=== PATIENT | male | born 1970 | race Caucasian/White ===

== ENCOUNTER 2020-02-14 10:41 | Outpatient (NON) | payer OTHER, SELFPAY ==
[2020-02-15 14:53] LABS: SARS-CoV-2 RNA PCR Positive
== END 2020-02-14 10:42 ==
LOC: ANHCOVIDDT 10:42
PROVIDERS: PCP Family Medicine; Visit Provider Nurse Practitioner Family
DX: U07.1 COVID-19 (principal)
CPT/HCPCS: 87635; C9803; U0003

== ENCOUNTER 2020-07-07 08:21 | Emergency (ER) | payer OTHER, SELFPAY ==
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
[2020-07-07 08:36] VITALS: BP 148/76; PULSE 66; RESP 16; TEMP 36.3; O2SAT 99
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
== END 2020-07-07 09:34 | disposition home or self-care (01) ==
PROVIDERS: Emergency Provider Nurse Practitioner; PCP Family Medicine
DX: S22.32XA Fracture of one rib, left side, initial encounter for closed fracture (principal); V86.06XA Driver of dirt bike or motor/cross bike injured in traffic accident, initial encounter
CPT/HCPCS: 71046; 71110; 99213; G0463

== ENCOUNTER → 2021-03-07 00:55 | Outpatient (CLI) | payer OTHER, SELFPAY ==
[2021-03-07 18:54] LABS: SARS-CoV-2 RNA PCR Negative
== END ==
PROVIDERS: PCP Family Medicine; Visit Provider Internal Medicine Gastroenterology
DX: Z01.812 Encounter for preprocedural laboratory examination (principal); Z20.822 Contact with and (suspected) exposure to COVID-19
CPT/HCPCS: C9803; U0003; U0005

== ENCOUNTER 2021-03-10 00:32 | Day surgery (SDC) | payer OTHER, SELFPAY ==
[2021-02-19 15:06] VITALS: BMI 30.9
--- NOTE | 2021-03-10 08:12 | P.PNAN_ITS ---
Anes - Initial Pre Proc Eval Procedure: Operation Date: 03/10/21 10:45 Proposed Procedures p Screening Colonoscopy - Prabhu Moreno MD Date/Time: 03/10/21 08:12 Surgeon: Prabhu Moreno MD Pre Op Diagnosis: neoplasm screening Patient Data Age: 50 Gender: M Height: 1.78 m Weight: 98 kg Allergies Allergy/AdvReac Type Severity Reaction Status Date / Time No Known Allergies Allergy Verified 03/10/21 09:43 Home Medications Medication Instructions Recorded Confirmed Type No Home Medications 02/19/21 02/19/21 History Patient hx anesthesia problems: none Family hx anesthesia problems: none Results Review: All pre-operative results and documents have been reviewed as part of the pre-operative evaluation. PMFSH Past Medical History Medical History Low testosterone Social History Social History Smoking status: Never smoker Second hand tobacco smoke exposure: No Alcohol intake: never Substance use: never Substance use type: does not use Living arrangements: with family Gender identity (if verbalized by the patient): Male Sexual Orientation (if Verbalized by the Patient): Straight or Heterosexual Spiritual care concerns: No Anes - Eval Final PreProcedure Day of Procedure 03/10/21 08:12 Patient weight: obese Heart: regular rate and rhythm Lungs: clear to auscultation and normal air movement Airway: Mallampati scale class II Neurological: alert and oriented Last oral intake: >/= 8 hours ASA classification: II Emergent: no Anesthetic plan: proceed Anesthesia type and monitoring: general GIVS and standard monitoring Results Review: All pre-operative results and documents have been reviewed as pa rt of the pre-operative evaluation. Informed Consent: The patient's anesthetic plan and its attendant risks and benefits were discussed with the patient/family/POA. Questions were solicited and answers provided to the satisfaction of the patient/family/POA.
[2021-03-10 09:44] VITALS: BP 127/92; PULSE 56; RESP 16; TEMP 36; O2SAT 96; BMI 30.4
[2021-03-10] MEDS: LACTATED RINGERS 1,000 ML 150 ML IV CONT (09:59)
--- NOTE | 2021-03-10 10:38 | PM.HPGS ---
History of Present Illness History of Present Illness Consent: Risks, benefits, and alternatives have been discussed and questions answered. Patient agrees to proceed with procedure. Chief complaint: neoplasm screening Narrative: aRn Wing is a 50 year old male here for first screening colonoscopy Review of Systems Constitutional: Constitutional: Denies headache(s) and Denies weakness Eyes: Eyes: Denies blurry vision ENT: Reports Normal hearing present, Denies headache(s) and Denies neck pain Cardiovascular: Cardiovascular: Denies chest pain and Denies dyspnea Respiratory: Respiratory: Denies dyspnea Gastrointestinal: Gastrointestinal: Reports no additional gastrointestinal complaints Genitourinary: Genitourinary: Denies dysuria Musculoskeletal: Musculoskeletal: Denies neck pain Integumentary/Breasts: Skin/Breast: Denies dry skin Neurologic: Reports Normal hearing present, Denies headache(s) and Denies weakness Psychiatric: Psychiatric: Denies anxiety Endocrine: Endocrine: Denies change in body appearance Hematologic/Lymphatic: Hematologic/Lymphatic: Denies easy bleeding Allergic/Immunologic: Allergic/Immunologic: Denies urticaria PMF Past Medical History Medical History (Updated 03/10/21 @ 10:38 by Prabhu Moreno MD) Colon cancer screening Low testosterone Social History Social History Smoking status: Never smoker Second hand tobacco smoke exposure: No Alcohol intake: never Substance use: never Substance use type: does not use Living arrangements: with family Gender identity (if verbalized by the patient): Male Sexual Orientation (if Verbalized by the Patient): Straight or Heterosexual Spiritual care concerns: No Meds Home Medications and Allergies Home Medications Medication Instructions Recorded Confirmed Type No Home Medications 02/19/21 02/19/21 History Allergies Allergy/AdvReac Type Severity Reaction Status Date / Time No Known Allergies Allergy Verified 03/10/21 09:43 Vital Signs Vital Signs - 24 hr 03/10/21 09:44 Temperature 96.8 F L Pulse Rate 56 L Respiratory Rate 16 Blood Pressure 127/92 H Pulse Oximetry 96 Exam Const: General: comfortable and no acute distress HENMT: General nose exam: Normal nares present Eyes: General: appearance normal, both eyes and all related structures Neck: Neck: no JVD Resp: Auscultation: clear to auscultation bilaterally Cardio: Rate: regular rate Rhythm: regular rhythm GI: Inspection: non-distended GI Palp: Yes Soft to palpation Skin: General skin exam: normal color Neuro: General: gait normal Speech: normal speech Extrem: General: normal to inspection Psych: Mental Status: mental status grossly normal Assessment and Plan Assessment and plan (1) Colon cancer screening: Code(s): Z12.11 - Encounter for screening for malignant neoplasm of colon Status: Acute Assessment and Plan: colonoscopy
[2021-03-10 10:53] VITALS: BP 101/58; PULSE 53; RESP 18; O2SAT 95
[2021-03-10 11:03] VITALS: BP 87/66; PULSE 53; RESP 21; O2SAT 99
[2021-03-10 11:13] VITALS: BP 118/83; PULSE 50; RESP 19; O2SAT 97
== END 2021-03-10 11:25 | disposition home or self-care (01) ==
PROVIDERS: PCP Family Medicine; Visit Provider Internal Medicine Gastroenterology
PROC: 0DJD8ZZ Inspection of Lower Intestinal Tract, Via Natural or Artificial Opening Endoscopic (ICD-10-PCS; CPT 45378; principal; 2021-03-10 10:45)
DX: Z12.11 Encounter for screening for malignant neoplasm of colon (principal); K63.5 Polyp of colon; K57.30 Diverticulosis of large intestine without perforation or abscess without bleeding; K64.8 Other hemorrhoids; E66.9 Obesity, unspecified; Z68.30 Body mass index [BMI] 30.0-30.9, adult
CPT/HCPCS: 45385; 88305; C9803; J2704; J7120; U0003; U0005

== ENCOUNTER 2021-04-30 16:57 | Outpatient (CLI) | payer OTHER, SELFPAY ==
--- NOTE | ~2021-04-30 | XR_ITS ---
XR abdomen/kub 1V DATE: 04/30/2021 17:16 INDICATION: Low back pain TECHNIQUE: AP projection, 2 views COMPARISON: None FINDINGS: The psoas shadows are intact. No visceromegaly is evident. There is no evidence of bowel ob struction. Minimal levoscoliosis and mild degenerative change of the lumbar spine. IMPRESSION: Nonspecific abdomen Reviewed, dictated and finalized at Location A. Reviewed, dictated and finalized at location A. NS PLANTER IMPRESSION: Nonspecific abdomen
--- NOTE | ~2021-04-30 | XR_ITS ---
XR lumbar spine min 4V DATE: 04/30/2021 17:16 INDICATION: Low back pain TECHNIQUE: AP, lateral, coned lateral lumbosacral and bilateral oblique views COMPARISON: 10/23/2015 lumbar spine FINDINGS: There is diffuse osteopenia. There is minimal levoscoliosis of the lumbar spine. There is mild degenerative disc disease at L2-3 and L3-4 and to a greater extent L5-S1. No spondyloly sis or spondylolisthesis. The lumbar pedicles are intact. The sacroiliac joints appear normal. IMPRESSION: Multilevel mild to moderate degenerative disc disease Reviewed, dictated and finalized at location A. LY CHAIN VICE PRESIDENT
== END 2021-04-30 16:58 | disposition home or self-care (01) ==
LOC: ANHIMG 16:59
PROVIDERS: PCP Family Medicine; Visit Provider Physician Assistant
DX: M54.50 Low back pain, unspecified (principal); Z87.442 Personal history of urinary calculi; M51.36 Other intervertebral disc degeneration, lumbar region
CPT/HCPCS: 72110; 74018

== ENCOUNTER 2021-05-11 13:23 | Outpatient (CLI) | payer OTHER, SELFPAY ==
--- NOTE | ~2021-05-11 | CT_ITS ---
EXAMINATION: CT abdomen pelvis wo con DATE: 05/11/2021 13:42 INDICATION: Calculus of kidney. TECHNIQUE: Computed tomography (CT) of the abdomen and pelvis was performed without intravenous contr ast. Automated exposure control and iterative reconstruction technique were employed. The dose-length product was 346.25 mGy-cm. COMPARISON: CT abdomen and pelvis 01/02/2006 FINDINGS: The visualized portions of the lung bases are clear without pneumonia or pleural effusion. The heart size is normal. No pericardial effusion. The liver, gallbladder, spleen, pancreas, adrenal glands, and kidneys are normal. There is no urolithiasis. There are bilateral inguinal hernias contai skyler fat. There are no dilated loops of bowel. The appendix is normal. There are no pathologically en larged lymph nodes. There is no free intraperitoneal fluid. There is mild thoracolumbar spondylosis. IMPRESSION: 1. No urolithiasis. Reviewed, dictated and finalized at location E. REPAIR PERSON IMPRESSION: 1. No urolithiasis.
== END 2021-05-11 13:24 | disposition home or self-care (01) ==
PROVIDERS: PCP Family Medicine; Visit Provider Physician Assistant
DX: N20.0 Calculus of kidney (principal); R10.9 Unspecified abdominal pain; M85.80 Other specified disorders of bone density and structure, unspecified site
CPT/HCPCS: 74176

== ENCOUNTER → 2021-06-27 00:06 | Outpatient (CLI) | payer OTHER, SELFPAY ==
[2021-06-27 13:37] LABS: SARS-CoV-2 RNA PCR Negative
== END ==
PROVIDERS: PCP Family Medicine; Visit Provider Surgery
DX: Z01.812 Encounter for preprocedural laboratory examination (principal); Z20.822 Contact with and (suspected) exposure to COVID-19
CPT/HCPCS: C9803; U0003; U0005

== ENCOUNTER 2021-07-01 00:51 | Day surgery (SDC) | payer OTHER, SELFPAY ==
[2021-06-22 14:59] VITALS: BMI 30.9
--- NOTE | 2021-06-22 15:04 | SUR.PREOP ---
Report to the Outpatient Waiting Room, entrance under the green pavilion located off [facility], at time 0900 on date 07/01/21 . OR Time: __1100 . - You and your visitor will be asked a series of questions to screen for COVID 19 for your protection. - A mask is required within the hospital. Preoperative COVID Testing Requirements: No COVID Test needed if: (proof is required; if not received patient will have Rapid Test prior to entry) - Patient has received COVID Vaccine at least 14 days prior to procedure date or - Patient has positive COVID test result within last 90 days of surgery date. COVID Test needed if above criteria is not met If not COVID vaccinated a COVID test must be conducted within 72 hours of surgery and patient is asked to isolate self from time of testing until procedure. You will go to the [facility] for your COVID testing. The [facility] is located at the corner of [address] from [facility]. You will only be called if COVID results are positive and your surgeon may reschedule your elective surgery date. Patients may have clear liquids (water, carbonated beverages, clear teas, apple juice) until 3 hours prior to surgery with a maximum of 20 ounces. - No food from midnight until time of surgery - Infants may have breast milk until 4 hours before surgery, infant formula 6 hours prior to surgery. - Children will be allowed to drink immediately following surgery. If applicable, please bring a bottle or sippy cup to assist with drinking. Juice, water, soda, and popsicles are readily available. For infants on formula, please bring formula the day of surgery. Pacifiers are allowed. Take the following medications with a SIP of water the morning of surgery: __n/a Medications to discontinue per physician ___n/a Date to take last dose___n/a Please no make-up, nail yakut, hairspray, perfume, deodorant, or body powder the day of surgery. No jewelry (including any body piercings) or valuables the day of surgery, leave them at home. Please take a shower or bath the night before, or the morning of, surgery with an antibacterial soap. Wear comfortable, loose fitting clothing. Children are encouraged to wear pajamas. hibiclens shower am of surgery. - Jewelry must be removed prior to entering the operating room. Rings and piercings that are not removed may be cut off. - The hospital will not accept responsibility for valuables. - Please leave all valuables, including medications, at home the day of surgery. If you are going home after surgery, a licensed pile driver operator must drive you home. - NO public transportation without another adult. - We recommend that an adult stay with you for 24 hours following discharge. - We also recommend that you do not drive, make important decision, drink alcoholic beverages, or take any drugs that were not prescribed by your health care provider for at least 24 hours after your discharge time. For Pediatric surgeries, we recommend two adults accompany the child home (only one inside the building at this time). One visitor will be allowed to accompany the patient into the hospital. Patients visitor will be instructed to remain with patient at all times or leave the building. We will allow the visitor to come back to the postoperative area when patient is ready. Follow any additional instructions given to you from your surgeon. Telephone instructions given to _dasia lopez and asked if any additional questions and then verbalized understanding. Patient advised to call surgeon office or pre surgery nurse liaison [phone] if any additional questions.
--- NOTE | 2021-06-30 14:59 | PM.SD2 ---
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 A few days later he started noticing pain in his low back and left groin. He got a CT scan of the abdomen and pelvis which showed bilateral fat containing inguinal hernias. Both the back pain and the left groin pain resolved. I saw him in the office. On examination he had a reducible, small right inguinal hernia but no left inguinal hernia. After discussion, he is taken to surgery at this time for right inguinal hernia repair. [facility] Past Medical History Medical History Colon cancer screening Low testosterone Renal stones Surgical History Surgical History H/O shoulder surgery H/O umbilical hernia repair Family History Family History Sibling Hypertension Father Diabetes mellitus Other Family history of malignant neoplasm Social History Social History Smoking status: Never smoker Second hand tobacco smoke exposure: No Alcohol intake: never Substance use: never Substance use type: does not use Living arrangements: with family Additional occupation/education comments: [employer] Gender identity (if verbalized by the patient): Male Sexual Orientation (if Verbalized by the Patient): Straight or Heterosexual Spiritual care concerns: No Same Day Admit/Disch: Med Pre-admit Medications Home Medications Medication Instructions Recorded Confirmed Type cholecalciferol (vitamin D3) 25 mcg PO DAILY 06/22/21 07/01/21 History [Vitamin D3] hydrocodone-acetaminophen 1 - 2 tablet PO Q6H PRN #7 tablet 07/01/21 Rx ketorolac 10 mg PO Q6H 4 Days #16 tablet 07/01/21 Rx Exam Const: General: comfortable, no acute distress, alert and awake HENMT: Head: normocephalic and atraumatic Mouth: Yes Normal oral and palatal mucosa present Eyes: Conjunctivae: conjunctivae normal Pupils: Equal, round and reactive pupils present EOM: EOMs intact bilaterally Neck: Neck: normal visual inspection, no lymphadenopathy and nontender Resp: Effort & Inspection: normal respiratory effort Auscultation: clear to auscultation bilaterally Cardio: Rate: regular rate Rhythm: regular rhythm Heart sounds: no gallops, no murmurs and no rubs GI: Inspection: non-distended GI Palp: Yes Soft to palpation, No Tenderness to palpation present (GI), No Hepatomegaly present and No Splenomegaly present : Male General Exam: Yes hernia (Left inguinal hernia, reducible) Penis: Yes normal penis Scrotum: scrotum normal Testes: Testes normal Skin: Lesions: no lesions Rashes: no rashes Neuro: General: no focal motor deficits and CN's II-XI intact bilaterally Cranial nerves: Yes Equal, round and reactive pupils present, Yes Bilaterally intact EOM present, Yes facial symmetry and Yes Midline tongue present Speech: normal speech Motor exam (neuro): 5/5 motor strength present throughout and Motor abnormalities not present Extrem: General: no clubbing, cyanosis or edema and edema Psych: Affect: normal affect Thought process: Normal thought process present Insight: Good insight present (Psych) DS: Summary Time Spent with Patient Time attestation: Total time spent providing and/or coordinating discharge services: DS: Admitting Diagnosis Discharge Date 07/01/2021 Admitting Diagnosis Left inguinal hernia-plan to proceed with left inguinal hernia repair under anesthesia as an outpatient. The procedure the risks the benefits have been discussed. Use of mesh has been discussed. The usual recovery time was discussed. All questions were answered. He understands and agrees to go ahead. DS: Discharge Diagnosis Discharg
[2021-07-01 06:12] VITALS: BP 136/83; PULSE 56; RESP 16; TEMP 36.1; O2SAT 97
[2021-07-01] MEDS: ACETAMINOPHEN 500 MG TABLET 1000 MG PO (06:37)
--- NOTE | 2021-07-01 06:43 | P.PNAN_ITS ---
Anes - Initial Pre Proc Eval Procedure: Operation Date: 07/01/21 07:30 Proposed Procedures p Right Inguinal Hernia Repair - Thiago Rolon MD Date/Time: 07/01/21 06:43 Surgeon: Thiago Rolon MD Pre Op Diagnosis: Rt Ing Hernia Patient Data Age: 50 Gender: M Height: 1.78 m Weight: 100.6 kg Last Vital Signs Temp 36.1 C L 07/01/21 06:12 Pulse 56 L 07/01/21 06:12 Resp 16 07/01/21 06:12 BP 136/83 07/01/21 06:12 Pulse Ox 97 07/01/21 06:12 Allergies Allergy/AdvReac Type Severity Reaction Status Date / Time No Known Allergies Allergy Verified 07/01/21 06:34 Home Medications Medication Instructions Recorded Confirmed Type cholecalciferol (vitamin D3) 25 mcg PO DAILY 06/22/21 07/01/21 History [Vitamin D3] Patient hx anesthesia problems: post op nausea/vomiting Family hx anesthesia problems: none Results Review: All pre-operative results and documents have been reviewed as part of the pre-operative evaluation. 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 Gender identity (if verbalized by the patient): Male Sexual Orientation (if Verbalized by the Patient): Straight or Heterosexual Spiritual care concerns: No Anes - Eval Final PreProcedure Day of Procedure 07/01/21 06:43 Patient weight: obese Heart: regular rate and rhythm Lungs: clear to auscultation Airway: Mallampati scale class II Neurological: alert and oriented Last oral intake: >/= 8 hours ASA classification: II Emergent: no Anesthetic plan: proceed Anesthesia type and monitoring: general GIVS and standard monitoring Results Review: All pre-operative results and documents have been reviewed as part of the pre-operative evaluation. Informed Consent: The patient's anesthetic plan and its attendant risks and benefits were discussed with the patient/family/POA. Questions were solicited and answers provided to the satisfaction of the patient/family/POA.
[2021-07-01] MEDS: KETOROLAC 15 MG/ML VIAL (*BKC) IV PUSH (06:45)
[2021-07-01] MEDS: LACTATED RINGERS 1,000 ML 30 ML IV CONT ×2 (06:45→09:37)
[2021-07-01] MEDS: SCOPOLAMINE 1.5 MG PATCH TRANSDERM (06:49)
--- NOTE | 2021-07-01 07:14 | WPDHPUPDATE1 ---
History and Physical Update Update Date/Time: 07/01/21 07:14 History and Physical has been reviewed, including an updated exam of the patient. There are NO changes in the patient's condition. Risks, benefits, and alternatives have been discussed and questions answered. Patient agrees to proceed with procedure.
[2021-07-01] MEDS: ceFAZolin 2 GM/D5W 50 ML 2 GM/50 ML BAG IVPB (07:28)
[2021-07-01 08:49] VITALS: BP 117/67; PULSE 58; RESP 12; TEMP 36.6; O2SAT 94
--- NOTE | 2021-07-01 08:55 | W.PM.PROC2 ---
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 Following this he had back pain in left groin pain. A CT scan of the abdomen pelvis was done. This showed bilateral fat containing inguinal hernias. He was seen in the office. His back and groin pain had resolved. He was found to have a right inguinal hernia. There was no left inguinal hernia. He is taken to surgery now for right inguinal hernia repair. Findings An indirect right inguinal hernia. There was also lipoma of the cord. Description of Procedure Patient was taken to the operating room placed in a supine position. The right groin and genitalia were prepped and draped. The proposed incision was marked on the skin. Local was infiltrated in the area of the skin and the deeper subcutaneous tissues. Incision was made deepened through the subcutaneous. Dissection was carried through Raffaele's fascia down to the external oblique aponeurosis. Additional local was infiltrated deep to the external oblique aponeurosis in the area of the inguinal canal and its contents. The external oblique was then opened laterally and extended medially through the external ring. The leaves of the aponeurosis were freed from the underlying inguinal canal contents. The cord was then mobilized medially on a [place] drain. The ilioinguinal nerve was left attached to the cord and avoided during the surgery. We then mobilized the cord back to the internal ring. Dissection was carried out in the anteromedial aspect of the spermatic cord. The hernia sac was found and carefully dissected free from the surrounding structures. There was a lipoma in the cord as well. This was dissected back to the internal ring divided and discarded. We then dissected the hernia sac back to a high dissection. It was dunked into the retroperitoneum. A large PerFix plug light was then placed in the defect. The edges were sutured to the transversalis fascia with interrupted 3-0 Vicryl suture. We then cut the patch to the appropriate size. It was placed over the inguinal canal floor. The lateral leaves passed beyond the cord. I then placed the 1st piece of Xaracoll over the patch. The cord and ilioinguinal nerve were laid over the Xaracoll. The external oblique aponeurosis was closed with interrupted 3-0 Vicryl suture. We placed more Xaracoll over the aponeurosis. Raffaele's fascia was closed with interrupted 3-0 Vicryl suture. The last piece of Xaracoll was placed in the subcutaneous. The skin was loosely approximated with 4-0 Vicryl subcuticular skin suture. The skin was finally closed with a running 4-0 Monocryl skin suture. Wound was dressed with Exofin surgical adhesive. Patient was awakened and taken to recovery in good condition. Sponge and needle counts were correct x2. Implants Large PerFix plug light Estimated Blood Loss 5 Drains No Packing No Pathology None sent Complications No immediate complications Condition Stable Disposition Same day
[2021-07-01 09:15] VITALS: BP 120/76; PULSE 42; RESP 12; O2SAT 96
[2021-07-01 09:45] VITALS: BP 138/79; PULSE 47; RESP 12
[2021-07-01 10:15] VITALS: BP 129/82; PULSE 41; RESP 12
[2021-07-01 10:45] VITALS: BP 136/89; PULSE 47; RESP 12
== END 2021-07-01 11:08 | disposition home or self-care (01) ==
PROVIDERS: PCP Family Medicine; Visit Provider Surgery
PROC: (CPT 49505; principal; 2021-07-01 07:30)
DX: K40.90 Unilateral inguinal hernia, without obstruction or gangrene, not specified as recurrent (principal); D17.6 Benign lipomatous neoplasm of spermatic cord; E66.9 Obesity, unspecified; Z68.31 Body mass index [BMI] 31.0-31.9, adult
CPT/HCPCS: 49505; A9270; C1781; J0690; J1100; J1885; J2250; J2270; J2405; J2704; J7120

== ENCOUNTER 2021-08-07 12:31 | Outpatient (CLI) | payer OTHER, SELFPAY ==
--- NOTE | ~2021-08-07 | DEXA_ITS ---
Bone Density Report Name: JUDY TERRY Age: 51 Sex: Male Ethnicity: White Date of : 1970 Indication: prior fracture; osteopenia on x-ray Referring Provider: SIOBHAN VOSS Study: Bone densitometry was performed. Exam Date: August 07, 2021 Accession number: [id number] Bone Density: Region BMD T-score Z-score Classification AP Spine(L1-L4) 0.883 -1.9 -1.5 Osteopenia Femoral Neck (Left) 0.631 -2.2 -1.4 Osteopenia Total Hip (Left) 0.790 -1.6 -1.3 Osteopenia Femoral Neck (Right) 0.663 -2.0 -1.2 Osteopenia Total Hip (Right) 0.805 -1.5 -1.2 Osteopenia Total Hip Mean 0.798 -1.6 -1.3 Osteopenia World Health Organization criteria for BMD impression classify patients as: Normal (T-score at or above -1.0), Osteopenia (T-score between -1.0 and -2.5), or Osteoporosis (T-score at or below -2.5). 10-year Fracture Risk(1): Major Osteoporotic Fracture 9.5% Hip Fracture 2.0% Reported Risk Factors: [place] (), Neck BMD=0.631, BMI=32.9, previous fracture (1) FRAX(R) Version 3.08. Fracture probability calculated for an untreated patient. Fracture probability may be lower if the patient has received treatment. Clinical Information Provided by Patient: Has had a low trauma fracture Patient maximum height was 70 No regular weight bearing exercise Drinks caffeinated beverages Impression: The patient has low bone mass, based on the Left Femoral Neck T-score. The patient has an estimated ten-year risk of hip fracture of 2% and an estimated ten-year risk of major fracture of 9.5%, based on the WHO FRAX algorithm. The patient has risk factors, including: previous fracture. Discussion: BONE DENSITY IS LOW AT ONE OR MORE SKELETAL SITES. This patient's lowest T-score is low at one or more skeletal sites. It meets the World Health Organization's (WHO) criteria for ?low bone mass? (T-score between -1.0 and -2.5). The patient's 10-year risk of fracture as calculated by FRAX is less than the threshold where pharmacological therapy is recommended by the National Osteoporosis Foundation (NOF). However, all treatment decisions require clinical judgment and consideration of individual patient factors, including patient preferences, comorbidities, previous drug use, risk factors not captured in the FRAX model (e.g., frailty, falls, vitamin D deficiency, increased bone turnover, interval significant decline in bone density) and possible under or overestimation of fracture risk by FRAX. The patient should follow a healthful lifestyle (good nutrition with adequate calcium and vitamin D, and appropriate weight-bearing exercise). Follow-Up: Consider repeating this study in 2 to 3 years to reassess this patient's status, or sooner if there is some new clinical indication. Reported by: LATISHA on 08/07/2021 12:51:
== END 2021-08-07 12:32 | disposition home or self-care (01) ==
PROVIDERS: PCP Family Medicine; Visit Provider Physician Assistant
DX: M85.89 Other specified disorders of bone density and structure, multiple sites (principal)
CPT/HCPCS: 77080

== ENCOUNTER 2022-02-02 10:27 | Outpatient (CLI) | payer OTHER, SELFPAY ==
--- NOTE | ~2022-02-02 | XR_ITS ---
EXAM: XR_CERV2-3V_CR DATE: 02/02/2022 10:52 HISTORY: RIGHT SIDED NECK PAIN FOR 2 MONTHS NO KNOWN INJURY . COMPARISON: 10/23/2015. FINDINGS: Craniocervical association and atlantoaxial joint are aligned. No prevertebral soft tissue swelling. Vertebral bodies are aligned. Vertebral body heights and disc spaces are maintained. Multi level mild facet sclerosis and hypertrophy. No fracture or traumatic malalignment. IMPRESSION: Multilevel mild facet arthropathy. Reviewed, dictated and finalized at location K.
== END 2022-02-02 10:28 | disposition home or self-care (01) ==
PROVIDERS: PCP Family Medicine; Visit Provider Nurse Practitioner Family
DX: M54.2 Cervicalgia (principal); R42 Dizziness and giddiness
CPT/HCPCS: 72040

== ENCOUNTER 2022-12-22 18:33 | Emergency (ER) | payer OTHER, SELFPAY ==
[2022-12-22 18:47] VITALS: BP 156/79; PULSE 70; RESP 16; TEMP 37.9; O2SAT 97
--- NOTE | 2022-12-22 19:32 | ED.FEVER ---
HPI - Fever General Chief Complaint: Fever Stated Complaint: Fever Source: patient Mode of arrival: ambulatory Limitations: no limitations History of Present Illness HPI Narrative: 52-year-old male presented for complaint of mild cough and body aches for about 3 days, endorses fever yesterday of 101, felt better this morning, then today 102.5 after showering. States he feels like he got hit by a truck. taking ibuprofen for symptoms. Denies nausea, vomiting, diarrhea, shortness of breath. Denies sick contacts. Related Data Home Medications Medication Instructions Recorded Confirmed No Home Medications 12/22/22 12/22/22 Allergies Allergy/AdvReac Type Severity Reaction Status Date / Time No Known Allergies Allergy Verified 12/22/22 18:49 Review of Systems Review of Systems: CONSTITUTIONAL: Reports body aches, fever, chills, or sweats. EYES: Denies visual changes, redness, or discharge. ENT: Denies rhinorrhea, congestion, sore throat, or otalgia. CARDIOVASCULAR: Denies chest pain, palpitations, or edema. RESPIRATORY: Denies cough or dyspnea. GASTROINTESTINAL: Denies abdominal pain, nausea, vomiting, or diarrhea. GENITOURINARY: Denies dysuria or hematuria. SKIN: Denies rash, itching, or wounds. MUSCULOSKELETAL: Denies back pain, joint pain, or myalgia. NEUROLOGIC: Denies headache, numbness, tingling, or weakness. All systems reviewed & are unremarkable except as noted in HPI and below PMFSH Past Medical History Medical History Colon cancer screening Low testosterone Renal stones Surgical History Surgical History H/O inguinal hernia repair right 07/01/21 H/O shoulder surgery H/O umbilical hernia repair Family History Family History Sibling Hypertension Father Diabetes mellitus Other Family history of malignant neoplasm Social History Social History Smoking status: Never smoker Second hand tobacco smoke exposure: No Alcohol intake: never Substance use: never Substance use type: does not use Living arrangements: with family Occupation/Education: occupation 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 Please see nursing chart for further information. There is no relevant family history pertinent to the presenting complaint Exam Narrative: GENERAL: Well-appearing, and in no acute distress. HEAD: Normocephalic, atraumatic. EYES: EOMI. No redness or drainage. Conjunctivae normal. ENT: Mucous membranes pink and moist. No rhinorrhea. TMs normal bilaterally. Throat normal. Uvula midline. NECK: Normal AROM. Supple. No lymphadenopathy. CHEST: No respiratory distress. Clear to auscultation. HEART: Regular rate and rhythm. No murmur appreciated. Normal peripheral pulses. ABDOMEN: Soft, nontender, nondistended, normal active bowel sounds. EXTREMITIES: Normal range of motion. No edema. SKIN: Warm, dry, no rash. Capillary refill normal. Normal skin turgor. NEURO: No focal deficits. Alert and oriented x3. Gait steady. PSYCH: Normal affect. Course Course Emergency Course: Patient is aware of diagnosis, understands and agrees to treatment plan. Anticipatory guidance given. Patient agrees to follow-up as directed and is aware of reasons to seek care at the emergency department. Portions of this record may have been created with voice recognition software Level of Care: Express Care Visit Vital Signs Vital signs: Vital Signs Temperature
== END 2022-12-22 19:35 | disposition home or self-care (01) ==
PROVIDERS: Emergency Provider Nurse Practitioner Family; PCP Family Medicine
DX: B34.9 Viral infection, unspecified (principal); Z20.822 Contact with and (suspected) exposure to COVID-19
CPT/HCPCS: 87426; 99213; C9803; G0463

== ENCOUNTER 2023-03-09 19:36 | Emergency (ER) | payer OTHER, SELFPAY ==
--- NOTE | ~2023-03-09 | XR_ITS ---
EXAM: XR foot LT min 3V DATE: 03/09/2023 20:03 HISTORY: left foot pain s/p dropping something onto same . COMPARISON: None available. FINDINGS: Decreased mineralization. No fracture or dislocation. No lytic or blastic lesion. Mild sca ttered degenerative changes. Mild Achilles and plantar enthesopathy. No erosion or periosteal change. Soft tissues within normal limits. IMPRESSION: No acute osseous finding in the left foot. Reviewed, dictated and finalized at location K. 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
[2023-03-09 19:51] VITALS: BP 147/85; PULSE 62; RESP 16; TEMP 36.4; O2SAT 99
--- NOTE | 2023-03-09 20:19 | ED.LOWEXIN ---
HPI - Extremity Injury (Lower) General Chief Complaint: Extremity Injury, Lower Stated Complaint: injury both feet Source: patient Mode of arrival: ambulatory Limitations: no limitations History of Present Illness HPI Narrative: 52-year-old male presented for complaint of bilateral feet pain after dropping a piece of steel on the feet. He states he was not wearing his steel-toed boots, and it resulted in a few abrasions. Pain is minimal, mostly to left great toe. Denies swelling, deformity, or decreased ROM. Pt did not plan to be seen for this but his signed him in. Related Data Home Medications Medication Instructions Recorded Confirmed No Home Medications 12/22/22 03/09/23 Allergies Allergy/AdvReac Type Severity Reaction Status Date / Time No Known Allergies Allergy Verified 03/09/23 19:51 Review of Systems Review of Systems: CONSTITUTIONAL: Denies body aches, fever, chills, or sweats. EYES: Denies visual changes, redness, or discharge. ENT: Denies rhinorrhea, congestion CARDIOVASCULAR: Denies chest pain, palpitations, or edema. RESPIRATORY: Denies cough or dyspnea. GASTROINTESTINAL: Denies abdominal pain, nausea, vomiting, or diarrhea. SKIN: reports abrasions to feet MUSCULOSKELETAL: Denies back pain, joint pain, or myalgia. NEUROLOGIC: Denies headache, numbness, tingling, or weakness. [facility] Past Medical History Medical History Colon cancer screening Low testosterone Renal stones Surgical History Surgical History H/O inguinal hernia repair right 07/01/21 H/O shoulder surgery H/O umbilical hernia repair Family History Family History Sibling Hypertension Father Diabetes mellitus Other Family history of malignant neoplasm Social History Social History Smoking status: Never smoker Second hand tobacco smoke exposure: No Alcohol intake: never Substance use: never Substance use type: does not use Living arrangements: with family Occupation/Education: occupation 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 Please see nursing chart for further information. There is no relevant family history pertinent to the presenting complaint Exam Narrative: GENERAL: Well-appearing HEAD: Normocephalic, atraumatic. EYES: conjunctivae clear, and EOMI. ENT: Mucous membranes moist. Oropharynx without edema, erythema or lesions. NECK: Supple. No lymphadenopathy CHEST: Clear to auscultation. HEART: Regular rate and rhythm. SKIN: Warm, dry. Left medial foot and left great toe superficial abrasions, superficial abrasion also to the right foot dorsal aspect. No bruising, swelling, bleeding or deformity noted. Full ROM to left great toe. Sensation intact. Cap refill <3seconds. NEURO: Alert and oriented x3. Course Course Emergency Course: Patient is aware of diagnosis, understands and agrees to treatment plan. Anticipatory guidance given. Patient agrees to follow-up as directed and is aware of reasons to seek care at the emergency department. Portions of this record may have been created with voice recognition software Level of Care: Express Care Visit Vital Signs Vital signs: Vital Signs Temperature 97.6 F 03/09/23 19:51 Pulse Rate 62 03/09/23 19:51 Respiratory Rate 16 03/09/23 19:51 Blood Pressure 147/85 H 03/09/23 19:51 Pulse Oximetry 99 03/09/23 19:51 Oxygen Delivery Room Air 03/09/23 19:51 Temperature
== END 2023-03-09 20:23 | disposition home or self-care (01) ==
PROVIDERS: Emergency Provider Nurse Practitioner Family; PCP Family Medicine
DX: S90.812A Abrasion, left foot, initial encounter (principal); S90.811A Abrasion, right foot, initial encounter; S90.412A Abrasion, left great toe, initial encounter; W20.8XXA Other cause of strike by thrown, projected or falling object, initial encounter
CPT/HCPCS: 73630; 99213; G0463

== ENCOUNTER 2024-03-05 14:25 | Outpatient (CLI) | payer OTHER, SELFPAY ==
--- NOTE | ~2024-03-05 | XR_ITS ---
XR hip RT 2V w AP pelvis Ordering provider: Elena Hackett PA-C History: . M25.551 - Pain in right hip . Comparison: None. FINDINGS: BONES: No acute fracture or dislocation. Small bone island in the right femoral neck. HIP JOINT SPACES: Normal. SACROILIAC JOINT SPACES/LUMBAR SPINE: The sacroiliac joint spaces are normal. Mild degenerative armstrong es of the visualized lower lumbar spine. PUBIC SYMPHYSIS: Normal. SOFT TISSUES: Normal. IMPRESSION: No acute osseous abnormality pelvis and right hip. Reviewed, dictated and finalized at location A. 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
== END 2024-03-05 14:26 | disposition home or self-care (01) ==
PROVIDERS: PCP Family Medicine; Visit Provider Physician Assistant Medical
DX: M25.551 Pain in right hip (principal)
CPT/HCPCS: 73502